=== PATIENT | male | born 1975 | race Caucasian/White ===

== ENCOUNTER 2018-06-19 22:23 | Emergency (ER) | payer OTHER, MEDICAID ==
[~2018-06-19] VITALS: Ht 177.8 cm; Wt 78.5 kg
[2018-06-19] MEDS ORDERED: ALBU8HFA4 INH (22:32)
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
--- NOTE | 2018-06-19 22:38 | NUR ---
Rad. called for xray
--- NOTE | 2018-06-19 22:40 | NUR ---
Rad. tech. at bedside for xray
--- NOTE | 2018-06-19 23:10 | NUR ---
Patient discharged to home in stable conditon. Written and verbal after care instructions given. Patient verbalizes understanding of instructions. Pt. provided w/ images, d/c w/ prescription per MD order, d/c paperwoork signed, all belongings w/ pt., ID band removed, ambulated out of ED w/ steady gait, NAD
== END 2018-06-19 23:12 | disposition home or self-care (01) ==
LOC: ER 22:26
DX: S52.531A Colles' fracture of right radius, initial encounter for closed fracture (principal); J45.909 Unspecified asthma, uncomplicated; Z79.899 Other long term (current) drug therapy; W51.XXXA Accidental striking against or bumped into by another person, initial encounter; Y93.89 Activity, other specified; Y92.89 Other specified places as the place of occurrence of the external cause; Y99.8 Other external cause status
CPT/HCPCS: 73110; A4663